=== PATIENT | female | born 1985 | race Caucasian/White ===

== ENCOUNTER 2021-06-25 14:25 | Observation (INO) | payer OTHER ==
[2021-06-25] MEDS ORDERED: SODIUM CHLORIDE 0.9% 500 ML INFUS.BAG IV ONE (15:19)
[2021-06-25 15:47] LABS: EOS % 4.3 % (0-4.5); HEMATOCRIT 22.2 % (32.4-45.2); MCHC 29.9 g/dl (32.0-36.0); MEAN CELL VOLUME 64.6 fl (80-96); MEAN PLT VOLUME 7.3 fl (7.5-11.1); MONO % 18.2 % (3.8-10.2); NEUT % 41.5 % (42.8-82.8); PLATELET COUNT 354 10^3/uL (134-434); RBC 3.43 M/mm3 (3.60-5.2); RDW 19.1 % (11.6-15.6); URINE APPEARANCE CLEAR; URINE BILIRUBIN NEGATIVE (NEGATIVE); URINE COLOR YELLOW; URINE GLUCOSE (UA) NEGATIVE (NEGATIVE); URINE KETONE NEGATIVE (NEGATIVE); URINE LEUK ESTERASE NEGATIVE (NEGATIVE); URINE NITRITE NEGATIVE (NEGATIVE); URINE PROTEIN NEGATIVE (NEGATIVE); URINE UROBILINOGEN 0.2 mg/dL (0.2-1.0); WHITE BLOOD COUNT 3.3 K/mm3 (4.0-10.0)
[2021-06-25 15:49] LABS: HCG,QUALITATIVE URINE Negative; MCH 19.3 pg (25.7-33.7)
[2021-06-25 15:52] LABS: HEMOGLOBIN 6.6 GM/dL (10.7-15.3)
[2021-06-25 16:13] LABS: CALCIUM 8.2 mg/dL (8.5-10.1)
[2021-06-25 16:14] LABS: ALBUMIN 3.2 g/dl (3.4-5.0); BLOOD UREA NITROGEN 8.3 mg/dL (7-18)
[2021-06-25 16:17] LABS: CREATININE 0.5 mg/dL (0.55-1.3)
[2021-06-25 16:18] LABS: BILIRUBIN,TOTAL 0.3 mg/dL (0.2-1); TOT PROT 6.8 g/dl (6.4-8.2)
[2021-06-25 17:09] LABS: ANISOCYTOSIS 2+; MACROCYTOSIS 1+; OVALOCYTE 1+; PLATELET ESTIMATE NORMAL
[2021-06-25] MEDS ORDERED: DEXTROSE 5%-NORMAL SALINE 1,000 ML IV SCH (20:30)
[2021-06-26 02:13] VITALS: BMI 27.3
[2021-06-26 07:08] LABS: HEMATOCRIT 28.2 % (32.4-45.2); HEMOGLOBIN 8.7 GM/dL (10.7-15.3); MCH 21.7 pg (25.7-33.7); MCHC 30.9 g/dl (32.0-36.0); MEAN CELL VOLUME 70.3 fl (80-96); MEAN PLT VOLUME 7.9 fl (7.5-11.1); PLATELET COUNT 333 10^3/uL (134-434); RBC 4.01 M/mm3 (3.60-5.2); RDW 21.8 % (11.6-15.6); WHITE BLOOD COUNT 5.3 K/mm3 (4.0-10.0)
[2021-06-26 08:04] LABS: BLOOD UREA NITROGEN 8.2 mg/dL (7-18); CALCIUM 8.3 mg/dL (8.5-10.1); MAGNESIUM 2.3 mg/dL (1.8-2.4)
[2021-06-26 08:08] LABS: PHOSPHOROUS 3.4 mg/dL (2.5-4.9)
[2021-06-26 08:10] LABS: ALBUMIN 3.1 g/dl (3.4-5.0); CREATININE 0.5 mg/dL (0.55-1.3)
[2021-06-26 08:13] LABS: BILIRUBIN,TOTAL 0.4 mg/dL (0.2-1); TOT PROT 6.3 g/dl (6.4-8.2)
[2021-06-26 08:58] VITALS: BP 118/71; PULSE 73; TEMP 98.5
[2021-06-26] MEDS ORDERED: medroxyPROGESTERone ACET 5 MG TABLET PO SCH (10:30)
== END 2021-06-26 14:14 | disposition home or self-care (01) ==
LOC: JER 14:25 → UNDOADMOB 19:29 → JERBED 19:29 → INTOOBSV 19:29 → J4W 06-26 00:52 → JERBED 06-26 00:52 → J4W 06-26 08:53
PROVIDERS: ADMIT Internal Medicine; ATTEND Nurse Practitioner Acute Care
PROC: 3E0337Z Introduction of Electrolytic and Water Balance Substance into Peripheral Vein, Percutaneous Approach (ICD-10-PCS; principal; 2021-06-26)
DX: N93.9 Abnormal uterine and vaginal bleeding, unspecified (principal); D64.9 Anemia, unspecified; R53.83 Other fatigue; R42 Dizziness and giddiness; R51.9 Headache, unspecified
CPT/HCPCS: 36415; 36430; 71046-TC-FY; 76830-TC; 80053; 81003; 83735; 84100; 84443; 84703; 85025; 85027; 86850; 86900; 86901; 86922; 87086; 93005; 93010; 96361; 96365; 99285-25; C9803-CS; G0378; P9058; U0003; U0005